=== PATIENT | female | born 1960 | race Caucasian/White ===

== ENCOUNTER 2025-03-09 11:06 | Outpatient (CLI) | payer BC ==
[2025-03-09 12:33] LABS: #Basophils 0.03 10x3/uL (0.0-0.2); #Eosinophils 0.04 10x3/uL (0.0-0.7); #Monocytes 0.60 10x3/uL (0.11-0.59); #Neutrophils 4.78 10x3/uL (1.40-6.50); %Basophils 0.4 % (0.0-1.0); %Eosinophils 0.6 % (0.0-10.0); %Lymphocytes 24.3 % (21.0-51.0); %Monocytes 8.3 % (0.0-10.0); %Neutrophils 66.3 % (42.0-75.0); Hematocrit 43.8 % (36.0-47.0); Hemoglobin 14.4 g/dL (12.0-16.0); Mean Corpuscular Hemoglobin 29.1 pg (27.0-31.0); Mean Corpuscular Volume 88.7 fL (78.0-98.0); Platelet Count 350 10x3/uL (130-400); Red Blood Cell (RBC) Count 4.94 mill/uL (4.20-5.40); White Blood Cell (WBC) Count 7.21 10x3/uL (4.8-10.8)
== END 2025-03-09 11:07 | disposition home or self-care (01) ==
LOC: LABBT 11:06
PROVIDERS: ATTEND Orthopaedic Surgery
DX: Z01.818 Encounter for other preprocedural examination (principal); G56.02 Carpal tunnel syndrome, left upper limb; M65.332 Trigger finger, left middle finger; M72.0 Palmar fascial fibromatosis [Dupuytren]
CPT/HCPCS: 85025; 93005; 93010

== ENCOUNTER 2025-03-13 06:12 | Day surgery (SDC) | payer BC ==
[2025-03-09 11:20] VITALS: BMI 25.0
[2025-03-13] MEDS ORDERED: Bacitracin Zinc Ointment 30 gm TUBE ONE (06:35)
[2025-03-13] MEDS ORDERED: CEFAZOLIN 2 GM VIAL ONE (06:43)
[2025-03-13] MEDS ORDERED: Ketorolac Tromethamine 30 MG (1 mL) VIAL ONE (07:26)
[2025-03-13] MEDS ORDERED: Ondansetron PF 4 MG/2 ML Vial ONE (07:26)
[2025-03-13] MEDS ORDERED: Lidocaine 1% PF 5 ML VIAL ONE (07:26)
[2025-03-13] MEDS ORDERED: PROPOFOL 200 MG/20 ML VIAL ONE (07:40)
== END 2025-03-13 09:55 | disposition home or self-care (01) ==
LOC: SDC 06:12
PROVIDERS: ATTEND Orthopaedic Surgery
DX: G56.02 Carpal tunnel syndrome, left upper limb (principal); M72.0 Palmar fascial fibromatosis [Dupuytren]; M65.332 Trigger finger, left middle finger; M65.342 Trigger finger, left ring finger; M77.8 Other enthesopathies, not elsewhere classified; M65.331 Trigger finger, right middle finger; M65.341 Trigger finger, right ring finger; S52.572A Other intraarticular fracture of lower end of left radius, initial encounter for closed fracture; S52.551A Other extraarticular fracture of lower end of right radius, initial encounter for closed fracture; M75.81 Other shoulder lesions, right shoulder; Z88.5 Allergy status to narcotic agent; X58.XXXA Exposure to other specified factors, initial encounter; Z79.899 Other long term (current) drug therapy; Z91.013 Allergy to seafood
CPT/HCPCS: A6223; J0665; J1885; J2405; J2704; J3010